=== PATIENT | male | born 1970 | race Hispanic/Latino ===

== ENCOUNTER 2024-06-09 22:50 | Emergency (ER) | payer BC ==
[~2024-06-09] VITALS: Ht 177.8 cm; Wt 94.3 kg
[~2024-06-09 22:50] MED LIST: HYDR-3421 PO; LEVO-70 PO; VALB40CA2 PO
[2024-06-09 23:42] VITALS: BP 126/52; PULSE 72; RESP 18; O2SAT 98
== END 2024-06-10 01:09 | disposition home or self-care (01) ==
LOC: EDH 22:50
DX: N99.522 Malfunction of incontinent external stoma of urinary tract (principal); N13.2 Hydronephrosis with renal and ureteral calculous obstruction; Z79.899 Other long term (current) drug therapy
CPT/HCPCS: 99282

== ENCOUNTER 2024-06-15 09:37 | Emergency (ER) | payer BC ==
[~2024-06-15] VITALS: Ht 177.8 cm; Wt 94.3 kg
[2024-06-15 14:53] VITALS: BP 114/65; PULSE 70; RESP 17; O2SAT 98
== END 2024-06-15 14:55 | disposition home or self-care (01) ==
LOC: EDH 09:37
DX: N99.522 Malfunction of incontinent external stoma of urinary tract (principal)
CPT/HCPCS: 99282

== ENCOUNTER 2024-07-15 17:17 | Emergency (ER) | payer BC ==
[~2024-07-15] VITALS: Ht 177.8 cm; Wt 94.3 kg
[2024-07-15 19:06] LABS: APPEARANCE,URINE CLOUDY (CLEAR); BILIRUBIN,URINE NEGATIVE (NEGATIVE); COLOR,URINE LIGHT-ORANGE (YELLOW); GLUCOSE, URINE (UA) NEGATIVE (NEGATIVE); KETONES,URINE NEGATIVE (NEGATIVE); LEUKOCYTE ESTERASE ,URINE 500 Leu/uL (NEGATIVE); NITRATE,URINE NEGATIVE (NEGATIVE); OCCULT BLOOD,URINE LARGE (NEGATIVE); PH,URINE 5.5 (5.0-8.0); PROTEIN,URINE 200 mg/dL (NEGATIVE); UROBILINOGEN,URINE 0.2 mg/dL (0.2-1.0)
[2024-07-15 19:21] LABS: ADD UA MICROSCOPIC YES
[2024-07-15 19:23] LABS: BACTERIA,URINE RARE /HPF (None Seen); MUCUS,URINE FEW LPF (None Seen); RBC,URINE TNTC /HPF (0-1); SQUAMOUS EPITHELIAL CELL,UR RARE /HPF (0-2); UNCLASSIFIED CRYSTAL 6 /HPF (None Seen); WBC CLUMP FEW /HPF (0-1); WBC,URINE TNTC /HPF (0-1)
[2024-07-15] MEDS ORDERED: SULF1TAB42 PO (19:34)
[2024-07-15] MEDS: cefTRIAXone 1G VIAL IM ONE (20:20)
[2024-07-15 21:15] VITALS: BP 128/63; PULSE 74; RESP 18; TEMP 98.5; O2SAT 99
== END 2024-07-15 21:19 | disposition home or self-care (01) ==
LOC: EDH 17:17
DX: N39.0 Urinary tract infection, site not specified (principal); Z79.899 Other long term (current) drug therapy; Z98.890 Other specified postprocedural states
CPT/HCPCS: 99284; 87086 ×2; 87186; 81001; 96372; J0696